=== PATIENT | female | born 1945 | race Caucasian/White ===

== ENCOUNTER 2025-02-23 13:38 | Emergency (ER) | payer MEDICARE ==
[~2025-02-23] VITALS: Ht 172.7 cm; Wt 83.8 kg
[2025-02-23 15:25] VITALS: BP 118/73; PULSE 74; RESP 20; TEMP 98.4; O2SAT 96
--- NOTE | 2025-02-23 16:06 | DVH ---
EXAM: CT HEAD WITHOUT CONTRAST HISTORY: Head trauma COMPARISON: None TECHNIQUE: Noncontrast axial CT images of the head were performed. Sagittal and coronal reformatted images were obtained. This CT exam was performed using 1 or more of the following dose reduction techniques: Automated exposure control, adjustment of the mA and/or kv according to patient size, or the use of iterative reconstruction techniques. Radiation Dose: CTDI volume is 52.04 mGy. Dose-length product is 919.87 mGy*cm FINDINGS: There is mild global brain atrophy. There is mild decreased attenuation in the periventricular white matter. No intracranial hemorrhage, mass, midline shift, hydrocephalus, or evidence of acute large vessel infarct. There are postoperative changes of Bilateral cataract extraction surgery. There is mild mucosal thickening in the right maxillary sinus. The bilateral mastoid air cells and middle ear spaces are clear. No cranial fracture. There is right frontal scalp edema. IMPRESSION: 1. Mild global brain atrophy and chronic ischemic changes without evidence of acute intracranial process. 2. Mild right maxillary sinus disease. 3. Right frontal scalp edema without underlying cranial fracture.
--- NOTE | 2025-02-23 16:17 | ED.PDOC ---
HPI (NEURO) HPI Comments 79-year-old female presents to the ER with a chief complaint of a fall. Patient reports that she walked into a metal stand and fell back hitting the posterior region of her head. Patient does have a hematoma to the forehead which is a 3 x 3 cm and an abrasion to the right posterior forearm. Denies any other symptoms at this time. Chief Complaint: Fall Injury Time Seen by MD: 14:31 Reviewed Notes: Nurses Notes, Medications, Allergies Information Source: Patient Mode of Arrival: Ambulatory Severity: Moderate Headache Severity: None Timing: Minutes Duration: Since onset, Minutes Prehospital treatment: None Circumstances: Spontaneous Symptoms: None Before: Normal During: Trauma: Head After: Normal Mentation History of: Recent head trauma Associated Signs and Symptoms: None Past Medical History PAST MEDICAL HISTORY: Denies Surgical History: Denies all surgeries MEDICAL LABORATORY TECHNOLOGIST History: No Pertinent MEDICAL LABORATORY TECHNOLOGIST History Family History Family History: Reviewed,noncontributory to illness, Unknown Social History Smoker: Non-Smoker Alcohol: Denies ETOH Use Drugs: Denies Drug Use Lives In: Home Constitutional: denies: chills, diaphoresis, fatigue, fever, malaise, sweats, weakness, others EENTM: denies: blurred vision, double vision, ear bleeding, ear discharge, ear drainage, ear pain, ear ringing, eye pain, eye redness, hearing loss, mouth pain, mouth swelling, nasal discharge, nose bleeding, nose congestion, nose pain, photophobia, tearing, throat pain, throat swelling, voice changes, others Respiratory: denies: cough, hemoptysis, orthopnea, SOB at rest, shortness of breath, SOB with excertion, stridor, wheezing, others Cardiovascular: denies: chest pain, dizzy spells, diaphoresis, Dyspnea on exertion, edema, irregular heart beat, left arm pain, lightheadedness, palpitations, PND, syncope, others Gastrointestinal: denies: abdomen distended, abdominal pain, blood streaked bowels, constipated, diarrhea, dysphagia, difficulty swallowing, hematemesis, melena, nausea, poor appetite, poor fluid intake, rectal bleeding, rectal pain, vomiting, others Genitourinary: denies: abnormal vagina bleeding, burning, dyspareunia, dysuria, flank pain, frequency, hematuria, incontinence, pain, , vagina discharge, urgency, others Neurological: denies: dizziness, fainting, headache, left sided numbness, left sided weakness, numbness, paresthesia, pre-existing deficit, right sided numbness, right sided weakness, seizure, speech problems, tingling, tremors, weakness, others Musculoskeletal: denies: back pain, gout, joint pain, joint swelling, muscle pain, muscle stiffness, neck pain, others Integumetry: reports: others (3 x 3 cm hematoma to the forehead and an abrasion to the right posterior forearm); denies: bruises, change in color, change in hair/nails, dryness, laceration, lesions, lumps, rash, wounds Allergic/Immunocompromised: denies: Difficulty Healing, Frequent Infections, Hives, Itching, others Hematologic/Lymphatic: denies: anemia, blood clots, easy bleeding, easy bruising, swollen glands, others Endocrine: denies: excessive hunger, excessive sweating, excessive thirst, excessive urination, flushing, intolerance to cold, intolerance to heat, u nexplained weight gain, unexplained weight loss, others Psychiatric: denies: anxiety, bipolar disorder, depression, hopeless, panic disorder, schizophrenia, sleepless, suicidal, others All Other Systems: Reviewed and Negative Physical Exam Exam Comments 3 x 3 cm hematoma to the forehead and an abrasion to the right posterior forearm General Appearance: No Apparent Distress, Normal HEENT: Normal ENT Inspection, Pharynx Normal, TMs Normal Neck: Full Range of Motion, Non-Tender, Normal, Normal Inspection Respiratory: Chest Non-Tender, Lungs Clear, No Accessory Muscle Use, No Respiratory Distress, Normal Breath Sounds Cardiovascular: No Edema, No JVD, No Murmur, No Gallop, Normal Peripheral Pulses, Regular Rate/Rhythm Breast Exam: Deferred Gastrointestinal: No Organomegaly, Non Tender, No Pulsatile Mass, Normal Bowel Sounds, Soft Genitalia: Deferred Pelvic: Deferred Rectal: Deferred Extremities: No calf tenderness, Normal capillary refill, Normal inspection, Normal range of motion, Non-tender, No pedal edema Musculoskeletal : Apperance: Normal Neurologic: Alert, tools developer II-XII nml as Tested, No Motor Deficits, Normal Affect, Normal Mood, No Sensory Deficits Cerebellar Function: Normal Reflexes: Normal Skin: Dry, Normal Color, Warm Lymphatic: No Adenopathy Was a procedure done? Was a procedure done?: No Differential Diagnosis (SZ) Seizure: Other Headache: Closed Head Injury, Post-Traumatic, Sinusitis, Trigeminal Neuralgia, Other X-Ray, Labs, Meds, VS Vital Signs Date Time Temp Pulse Resp B/P (MAP) Pulse Ox O2 Delivery O2 Flow Rate FiO2 02/23/25 15:25 74 20 96 Room Air 02/23/25 15:25 98.4 74 20 118/73 (88) 96 98.4 02/23/25 13:40 98.4 74 20 118/73 96 98.4 X-Ray, Labs, Meds, VS Comment Patient arrives alert and oriented, ABC's intact, afebrile, vital signs stable, saturating well in room air Diagnostic imaging ordered by me and results interpreted by radiology : CT head without contrast The following differential diagnoses were considered for this patient; subdural hematoma, subarachnoid hemorrhage, epidural hematoma, intraparenchymal bleed, herniation, skull fracture. The patient had a computed tomography of their head without any evidence of acute intracranial abnormality as per radiology. The patient is neurologically intact by exam and is able to ambulate without difficulty. A complete examination does not reveal any other related injury at this time. The patient is not currently utilizing any anticoagulants. The patient is advised to use tylenol as needed for pain. The patient is instructed to follow up their primary care physician as needed or return to ER if vomiting or worsening headache occurs. The patient was counseled in regards to the diagnosis and management of the condition and verbalized understanding of this. Additional MDM Review of External, Non-ED records: External records reviewed. Discussion with independent historian (EMS, family) history obtained from the patient/parents (if applicable) at bedside Chronic conditions affecting care: None Social determinants of health affecting care: None Consideration of admission (observation or admission): I considered escalation of care to admission for this patient, however given the reassuring workup, the patient is safe for outpatient management. Discussion with the Radiology: No Tests considered but not performed: Prescription medication considered but not given: 12 lead EKG interpretation: Time of 1ST Reevaluation: 16:30 Reevaluation 1ST: Unchanged Patient Education/Counseling: Diagnosis, Treatment, Prognosis Family Education/Counseling: No Family Present Departure 1 Departure Time of Disposition: 16:17 Impression: Primary Impression: Blunt head trauma Qualified Codes: S09.8XXA - Other specified injuries of head, initial encounter Disposition: 01 HOME / SELF CARE / HOMELESS Condition: Stable Discharged With: Self Critical Care Note Critical Care Time?: No Stability Stability form required: No Heart Score Heart Score: Heart Score Response (Comments) Value History N/A 0 EKG N/A 0 Age N/A 0 Risk Factors N/A 0 Troponin N/A 0 Total 0 I personally scribed for TONY NARAYANAN NP ([email or web address]) on 02/23/25 at 16:38. Electronically submitted by Sesar Sommer ([email or web address]). TONY NARAYANAN NP Feb 23, 2025 16:17
== END 2025-02-23 16:31 | disposition home or self-care (01) ==
LOC: ER 13:38
DX: S00.83XA Contusion of other part of head, initial encounter (principal); W18.39XA Other fall on same level, initial encounter; Y93.89 Activity, other specified; Y92.89 Other specified places as the place of occurrence of the external cause; Y99.8 Other external cause status
CPT/HCPCS: 70450